=== PATIENT | male | born 1975 | race Hispanic/Latino ===

== ENCOUNTER 2019-09-02 12:51 | Emergency (ER) | payer SELFPAY ==
[2019-09-02] MEDS ORDERED: Lidocaine 1% PF 5 ML VIAL ONE ×2 (13:01→13:08)
[2019-09-02] MEDS ORDERED: Adacel (T-DAP) 0.5 ML SYRINGE ONE (13:29)
--- NOTE | 2019-09-02 17:45 | RAD ---
RIGHT THUMB THREE VIEWS: 09/02/19 A mildly comminuted fracture of the distal phalanx is present that involves the terminal tuft and mor e proximal parts. The IP joint does not appear to be involved. IMPRESSION: Comminuted distal phalanx fracture. POS: HOME
== END 2019-09-02 14:35 | disposition home or self-care (01) ==
LOC: BURERS 12:51
DX: S62.521A Displaced fracture of distal phalanx of right thumb, initial encounter for closed fracture (principal); S61.111A Laceration without foreign body of right thumb with damage to nail, initial encounter; E78.00 Pure hypercholesterolemia, unspecified; Z23 Encounter for immunization; W26.8XXA Contact with other sharp object(s), not elsewhere classified, initial encounter
CPT/HCPCS: 12002; 90471; 90715; J2001

== ENCOUNTER 2019-09-30 18:24 | Emergency (ER) | payer SELFPAY ==
[2019-09-30] MEDS ORDERED: Lidocaine 2% PF 5 ML VIAL ONE (19:53)
== END 2019-09-30 20:55 | disposition home or self-care (01) ==
LOC: BURERS 18:24
DX: T81.49XA Infection following a procedure, other surgical site, initial encounter (principal); S61.011D Laceration without foreign body of right thumb without damage to nail, subsequent encounter; E78.00 Pure hypercholesterolemia, unspecified
CPT/HCPCS: 64450; J2001

== ENCOUNTER 2021-07-24 01:59 | Emergency (ER) | payer SELFPAY ==
[2021-07-24] MEDS ORDERED: Lidocaine Viscous Sol 2% 15 ml UD Cup ONE (03:02)
[2021-07-24] MEDS ORDERED: Mag-Al Plus 1200 MG/1200 MG/120 MG/30 ML UDCUP ONE (03:02)
== END 2021-07-24 03:30 | disposition home or self-care (01) ==
LOC: BURERS 01:59
DX: K29.70 Gastritis, unspecified, without bleeding (principal); R07.89 Other chest pain
CPT/HCPCS: 71046; 93005